=== PATIENT | female | born 1990 ===

== ENCOUNTER 2018-04-09 18:45 | Emergency (ER) | payer MEDICAID, SELFPAY ==
[2018-04-09 19:33] VITALS: BMI 41.5
--- NOTE | 2018-04-09 19:59 | OBHP ---
Datetime: 04/09/2018 19:46 IP Adm Impression: Term, intrauterine ; No Active Labor IP Admit Plan: Discharge home Admit Comment, IP Provider: PT presented today for IOL for excess weight gain and proteinuria in pre gnancy. POBHx: [address] [facility] 40 weeks., [address] [facility] PGYNHx: no STD PMHx:None Social Hx: negative x 3 Meds: none ALL: NKDA A/P: 27 @ 38 6/7 by EDC presents for IOL. 1) I d/w the patient that since she is not 39 weeks and she does not have an indicated medical moncho son for induction she will be sent home and return at 39 weeks. 2) Vitals are stable. 3) Category 1 tracing. 4) Return at 39 week for induction. 5) Plan d/w the patient with an natural developer. Pelvic Type - PN: Adequate Extremities - PN: Normal Abdomen - PN: Normal Back - PN: Normal Breast - PN: Normal Lungs - PN: Normal Heart - PN: Normal Thyroid - PN: Normal Neurologic - PN: Normal HEENT - PN: Normal General - PN: Normal FHR - Baseline A Provider: 150 Contraction Comments Provider: none Gestation - Est Wks by US: 38 6/7 EGA AdmitDate IP: 38.6 IP Chief Complaint: Maternal discomfort; evaluation NICHD Variability Prov Fetus A: Moderate 6-25bpm NICHD Accel Fetus A IP Provider: 15X15 NICHD Decel Fetus A IP Provider: None Dilatation, Provider: 0 Effacement, Provider: 0 Station, Provider: -3 Genitourinary Exam: Normal DTRs - PN: Normal
== END 2018-04-09 20:00 | disposition home or self-care (01) ==
LOC: C.EROB 18:45
DX: O26.893 Other specified pregnancy related conditions, third trimester (principal); Z3A.38 38 weeks gestation of pregnancy

== ENCOUNTER 2018-04-10 08:00 | Inpatient (IN) | payer MEDICAID, SELFPAY ==
[2018-04-09 19:33] VITALS: BMI 41.5
[2018-04-10] MEDS ORDERED: Lactated Ringer's 1,000 ML IV SCH (09:15)
[2018-04-10] MEDS: Lactated Ringer's 1,000 ML IV SCH ×2 (09:30→11:03)
--- NOTE | 2018-04-10 10:02 | OBADHP ---
Datetime: 04/10/2018 09:58 Admit Comment, IP Provider: 27 yo EDC 04/15/18 by US presents for sched'd induction for prote inuria 572g. She denies ctxs, srom, decreased fm, denies h/a, sctomata, ruq pain, n/v or blurred va pt denies h/o of difficult vag deliveries in past. states wiht last preg she gained more weight wh ic she subsequently lost. pobhx: x2 pmhx_ pshx: denies nkda; denies food allergies medic: pnv; feso4 I: 39wk induction for proteinura P: admit for cytotec-plan d/w pt IP Admit Plan: Admit to unit Datetime: 04/10/2018 09:29 Pelvic Type - PN: Adequate Extremities - PN: Normal Abdomen - PN: Normal Back - PN: Normal Breast - PN: Not Done Lungs - PN: Normal Heart - PN: Normal Thyroid - PN: Not Done Neurologic - PN: Normal HEENT - PN: Normal General - PN: Normal Presentation-Admit: Vertex FHR - Baseline A Provider: 130 Membranes, Provider: Intact Contraction Comments Provider: none Comments, ACOG Physical Exam: bedside us confirms vtx A+/ri vzi/ rpr,hiv nr/hepBsAg neg Vital Signs Provider: Reviewed; Within Normal Limits IP Chief Complaint: Uterine contractions NICHD Variability Prov Fetus A: Moderate 6-25bpm NICHD Accel Fetus A IP Provider: 15X15 FHR Category Provider Fetus A: Category I NICHD Decel Fetus A IP Provider: None Dilatation, Provider: ft Effacement, Provider: 0 Genitourinary Exam: Normal DTRs - PN: Normal EGA AdmitDate IP: 39.0 IP Adm Impression: Term, intrauterine Datetime: 04/09/2018 19:46 Gestation - Est Wks by US: 38 04/11 Station, Provider: -3
[2018-04-10 10:20] LABS: BASO % 0.2 % (0.0-2.0); EOS % 0.6 % (0.0-4.0); HEMOGLOBIN 11.8 g/dL (11.0-16.0); LYMPH # 1.8 K/uL (1.0-4.3); LYMPH % 23.6 % (20.0-40.0); MEAN CORPUSCULAR HEMOGLOBIN 27.7 pg (27.0-31.0); MEAN CORPUSCULAR HGB CONC 33.4 g/dL (33.0-37.0); MEAN PLATELET VOLUME 9.5 fL (7.2-11.7); MONO # 0.5 K/uL (0.0-0.8); MONO % 6.7 % (0.0-10.0); NEUT # 5.3 K/uL (1.8-7.0); NEUT % 68.9 % (50.0-75.0); RBC 4.27 Mil/uL (3.80-5.20); RED CELL DISTRIBUTION WIDTH 14.1 % (11.5-14.5); WHITE BLOOD COUNT 7.7 K/uL (4.8-10.8)
[2018-04-10] MEDS ORDERED: Atropine 0.4 mg/ml Inj (1 mL) ONE (10:24)
--- NOTE | 2018-04-10 15:17 | OBPN ---
Datetime: 04/10/2018 15:15 IP Progress Plan: Induction IP Progress Note Comment: s: no c/o; +cramping, mild 4/10 o: ft/th/h- no change i: 39wk induction p: for cytotec 2. Datetime: 04/10/2018 09:29 Membranes, Provider: Intact Contraction Comments Provider: none FHR - Baseline A Provider: 130 Presentation-Admit: Vertex Vital Signs Provider: Reviewed; Within Normal Limits NICHD Accel Fetus A IP Provider: 15X15 FHR Category Provider Fetus A: Category I NICHD Variability Prov Fetus A: Moderate 6-25bpm Dilatation, Provider: ft Effacement, Provider: 0 NICHD Decel Fetus A IP Provider: None Datetime: 04/09/2018 19:46 Gestation - Est Wks by US: 38 6/7 Station, Provider: -3
[2018-04-10] MEDS ORDERED: Nalbuphine 20 mg/ml Inj (1 ml) IVP PRN (21:43)
[2018-04-10] MEDS ORDERED: Nalbuphine 20 mg/ml Inj (1 ml) ONE (21:50)
[2018-04-10] MEDS ORDERED: Oxytocin 30 UNIT 30 UNITS/500 ML BAG IV PRN (23:52)
[2018-04-11] MEDS ORDERED: Fentanyl/Bupivacaine HCl 0 ML EPI ONE (01:14)
[2018-04-11] MEDS ORDERED: Oxytocin 10 Units/ml Inj ONE (01:53)
[2018-04-11] MEDS ORDERED: Oxycodone/Acetaminophen 5/325 mg Tab PO PRN (02:28)
[2018-04-11] MEDS ORDERED: Oxytocin 10 Units/ml Inj IM STA (02:31)
--- NOTE | 2018-04-11 02:42 | OBDS ---
DELIVERY PERSONNEL Delivery Doctor: Jeffery Foy MD Electrical Maintenance Engineer: Isabelle Garay RN MATERNAL INFORMATION Delivery Anesthesia: None Medications in Delivery: pitocin 10 units IM, pitocin 20 units in 1 liter LR Estimated Blood Loss (ml): 300 Placenta Cultured: No Maternal Complications: None RN Comments: to a live baby girl with 07/14 Provider Comments: ap dx: 39.1wks; proteinuria; maternal obesity pp dx: same proced: induction with cytotec x2; tight nuchal cord x2 clamped and cut @perineum. ; placental deliveed spontaneously and intact; repair of perineal lacaertaion ob: orossetos findings: tight nonreducible nuchal cord; viable female 9_9 wt [id number] ebl: 300 path:none destina: pt remained in br w/ . LABOR SUMMARY EDC: 04/17/2018 00:00 No. Babies in Womb: 1 Attempted: No Labor Anesthesia: IV Sedation LABOR INFORMATION Reason for Induction: Other Reason for Induction Other: excessive weight gain of the mother, proteinuria Complete Dilatation: 04/11/2018 01:10 Cervical Ripening Agents: Cytotec @ (Annotations: cytotec 50 mcg po #3) Oxytocin: N/A Group B Beta Strep: Negative Steroids Given: None Reason Steroids Not Administered: Not Applicable MEMBRANES Membranes Rupture Method: Spontaneous STAGES OF LABOR Stage 2 hrs: 0 Stage 2 min: 31 Stage 3 hrs: 0 Stage 3 min: 6 VAGINAL DELIVERY Episiotomy: None Laceration Extension: First Degree Laceration Type: Perineal Laceration Repair: Yes Laceration Repair Note: repaired with 2-0vicryl with 2% local lidocaine. Initial Vag Sponge Count: 10 Final Vag Sponge Count: 10 Initial Vag Sharps Count: 0 Final Vag Sharps Count: 2 Sponge Count Correct: Yes; Vaginal Sweep Performed Sharps Count Correct: Yes Count Comment: correct BABY A INFORMATION Infant Delivery Date/Time: 04/11/2018 01:41 Method of Delivery: Vaginal Born in Route : No : N/A Forceps: N/A Vacuum Extraction: N/A Shoulder Dystocia : No SHOULDER DYSTOCIA BABY A Infant Delivery Date/Time: 04/11/2018 01:41 PRESENTATION/POSITION BABY A Presentation: Cephalic (Annotations: dr wells confirmed vertex position via bedside u/s) Cephalic Presentation: Vertex Vertex Position: Left Occipital Anterior Breech Presentation: N/A PLACENTA INFORMATION BABY A Placenta Delivery Time : 04/11/2018 01:47 Placenta Method of Delivery: Spontaneous Placenta Status: Delivered SCORES BABY A Heart Rate 1 min: >100 bpm Resp Effort 1 min: Good Cry Reflex Irritability 1 min: Cough or Sneeze or Pulls Away Muscle Tone 1 min: Active Motion Color 1 min: Body Ricketts, Extremities Blue SCORE 1 MIN: 9 Heart Rate 5 min: >100 bpm Resp Effort 5 min: Good Cry Reflex Irritability 5 min: Cough or Sneeze or Pulls Away Muscle Tone 5 min: Active Motion Color 5 min: Body Ricketts, Extremities Blue SCORE 5 MIN: 9 INFORMATION BABY A Gestational Age at Delivery: 39.1 Gestational Status: Term Infant Outcome : Liveborn Infant Condition : Stable Sex: Female IDENTIFICATION/MEDS BABY A ID Band Number: [id number] ID Band Location: Left Leg; Left Arm Sensor Applied: Yes Sensor Number: [id number] Sensor Location : Cord Clamp Vitamin K Given : Aquamephyton 1 mg IM Erythromycin Given: Given Both Eyes WEIGHT/LENGTH BABY A Infant Birthweight (gms): 3455 Weight (lb): 7 Weight (oz): 10 Infant Length Inches: 20.00 Length cms: 50.8 CORD INFORMATION BABY A No. Cord Vessels: 3 Nuchal Cord : Around Neck x2, Tight Cord Blood Taken: Yes Suction: Mouth ASSESSMENT BABY A Complications: None Physical Findings at Delivery: Within Normal Limits Respirations: Appears Normal Operations Research Director/ALS Called : No Care By: Dr. Lucero Transferred To: Remains with Mother RESUSCITATION BABY C Signature: navdeep
[2018-04-11] MEDS: Benzocaine/Menthol 20%-0.5% Topical Spray (60 ml) TOP PRN ×2 (04:05→19:31)
[2018-04-11] MEDS: Multiple Vitamins Tab PO SCH (10:25)
[2018-04-12 08:20] LABS: BASO % 0.3 % (0.0-2.0); EOS # 0.1 K/uL (0.0-0.7); EOS % 0.7 % (0.0-4.0); HEMOGLOBIN 11.5 g/dL (11.0-16.0); LYMPH # 2.6 K/uL (1.0-4.3); LYMPH % 25.8 % (20.0-40.0); MEAN CELL VOLUME 82.6 fL (81.0-99.0); MEAN CORPUSCULAR HEMOGLOBIN 27.9 pg (27.0-31.0); MEAN CORPUSCULAR HGB CONC 33.8 g/dL (33.0-37.0); MEAN PLATELET VOLUME 9.3 fL (7.2-11.7); MONO # 0.7 K/uL (0.0-0.8); MONO % 7.2 % (0.0-10.0); NEUT # 6.8 K/uL (1.8-7.0); RBC 4.13 Mil/uL (3.80-5.20); RED CELL DISTRIBUTION WIDTH 14.6 % (11.5-14.5); WHITE BLOOD COUNT 10.2 K/uL (4.8-10.8)
--- NOTE | 2018-04-12 08:31 | OBPPN ---
Datetime: 04/12/2018 08:24 PP Pain Prov: Within normal limits PP Nausea Prov: Denies PP Flatus Prov: Yes PP Breasts Prov: Normal PP Heart Prov: Normal PP Lungs Prov: Normal PP Abdomen/Uterus Prov: Normal PP Lochia Prov: Normal PP Vulva/Perineum Prov: Normal PP CVA Tenderness Prov: Normal PP Extremities Prov: Normal PP Impression Prov: Normal progression PP Plan Prov: Continue present management PP Progress Note Prov: Pt doing well. Breast feeding. Continue post care IP PP Procedures: None Vital Signs Provider PP: Reviewed; Within Normal Limits
[2018-04-12] MEDS: Multiple Vitamins Tab PO SCH (09:54)
[2018-04-13 08:21] VITALS: BP 108/71; PULSE 75; O2SAT 99
[2018-04-13] MEDS: Multiple Vitamins Tab PO SCH (09:19)
--- NOTE | 2018-04-13 10:12 | OBPPN ---
Datetime: 04/13/2018 10:04 PP Pain Prov: Within normal limits PP Nausea Prov: Denies PP Flatus Prov: Yes PP BM Prov: Yes PP Breasts Prov: Normal PP Heart Prov: Normal PP Lungs Prov: Normal PP Abdomen/Uterus Prov: Normal PP Lochia Prov: Normal PP Vulva/Perineum Prov: Normal PP CVA Tenderness Prov: Normal PP Extremities Prov: Normal PP C/S Incision Prov: Not Applicable PP Progress Prov: Normal PP Comments Phys Exam Prov: Breasts: no cracked nipples Abdomen: Obese. Soft. Non tender; 1 FB below umbilicus. Mild. lochia rubra Extremities: trace pedal edema, bilaterally. No calf tenderenss or cyanosis All other systems reviewed and are negative PP Impression Prov: Normal progression PP Plan Prov: Discharge PP Progress Note Prov: Patient received in room 460, . Reports uterine cramps, relieved with motrin. Denies shortness of breath, dizziness. Ambulating and voiding without difficulty. P.E.: as above. Obese, in NAD. Awake, alert, oriented to time, person and place. Pleasant and extension course coordinator perative. - PPD#1 H/H 11.5. RH (+) Assessment: PPD# 2, 27 y.o. , S/P . Afebrile, vital signs stable. Clinically stable. Plan: 1) Discharge home 2) See full discharge instructions
--- NOTE | 2018-04-13 10:12 | OBDCSUM ---
Datetime: 04/13/2018 07:53 Discharged to, Provider: Home Follow up at, Provider: [facility] Disch Instr Activity: Normal activity; May Shower Disch Instr Diet: Regular Discharge Diet restrict Prov: none Discharge Diagnosis, Provider: Term Delivered Discharge Time: 04/13/2018 11:00 Follow up in weeks, Provider: 6 weeks Disch Referrals: None Contraception discussed, Prov: No Disch Activity Restrictions: No exercising; No lifting; No sexual activity; Nothing in vagina - Inte rcourse, tampons, douche
[2018-04-13 15:48] VITALS: RESP 18; TEMP 98.4
== END 2018-04-13 10:30 | disposition home or self-care (01) | DRG 775 ==
LOC: C.EROB 08:08 → C.4D 09:12 → C.4M 04-11 03:48
PROVIDERS: ADMIT Obstetrics & Gynecology; ATTEND Obstetrics & Gynecology
PROC: 3E0P7VZ Introduction of Hormone into Female Reproductive, Via Natural or Artificial Opening (ICD-10-PCS; 2018-04-10)
PROC: 10E0XZZ Delivery of Products of Conception, External Approach (ICD-10-PCS; principal; 2018-04-11)
PROC: 0HQ9XZZ Repair Perineum Skin, External Approach (ICD-10-PCS; 2018-04-11)
DX: O12.14 Gestational proteinuria, complicating childbirth (principal); O69.1XX0 Labor and delivery complicated by cord around neck, with compression, not applicable or unspecified; O70.0 First degree perineal laceration during delivery; E66.9 Obesity, unspecified; O99.214 Obesity complicating childbirth; Z3A.39 39 weeks gestation of pregnancy; Z37.0 Single live birth